=== PATIENT | female | born 1980 | race Two or more races ===

== ENCOUNTER 2018-06-08 09:50 | Inpatient (IN) | payer OTHER ==
[~2018-06-08 09:50] MED LIST: CITRIC ACID/SODIUM CITRATE 30 ML UNIT-DOSE CUP PO ONE; ELECTROLYTE-148 SOLN 1,000 ML IV SCH
[2018-06-08] MEDS ORDERED: ELECTROLYTE-148 SOLN 1,000 ML IV SCH ×2 (10:50→13:30)
[2018-06-08 11:35] VITALS: BMI 32.2
[2018-06-08] MEDS ORDERED: OXYTOCIN 20 UNITS in 0.9% NS 20 UNIT/1,000 ML INFUS.BAG IV ONE ×2 (13:08→15:26)
[2018-06-08] MEDS ORDERED: CITRIC ACID/SODIUM CITRATE 30 ML UNIT-DOSE CUP PO ONE (13:29)
[2018-06-08] MEDS ORDERED: morphine SULFATE/Preservative Free 0.5 MG/ML (1cc Syringe) ONE (13:35)
--- NOTE | 2018-06-08 13:36 | HP ---
Past Medical History - Admission Chief Complaint: Spontaneous rupture of membrane History of Present Illness: 38 yo @ 39 weeks gestation, EDC 06/15/18, with 2 previous C-Sections, presents c/o rupture of membrane at 8am. She was admitted for repeat . History Source: Patient Limitations to Obtaining History: No Limitations - Past Medical History ...: 3 ...Para: 2 ...Term: 2 ...: 0 ...Spon : 0 ...Induced : 0 ...Multiple Gestation: 0 ...LMP: 09/14/17 ... Weeks Gestation by Dates: 38.1 ...EDC by Dates: 06/21/18 ...EDC by Sono: 06/20/18 - Past Surgical History Past Surgical History: Yes: Hx Myomectomy: No Hx Transabdominal Cerclage: No - Smoking History Smoking history: Never smoked Have you smoked in the past 12 months: No - Alcohol/Substance Use Hx Alcohol Use: No History of Substance Use: reports: None - Social History Usual Living Arrangement: Yes: With Significant Other History of Recent Travel: No Home Medications - Allergies Allergies/Adverse Reactions: Allergies Allergy/AdvReac Type Severity Reaction Status Date / Time No Known Allergies Allergy Verified 06/08/18 11:40 - Home Medications Home Medications: Ambulatory Orders Ferrous Sulfate 325 mg PO DAILY 06/01/18 Pnv No.95/Ferrous Fum/Folic AC [ Vitamin Tablet] 1 each PO DAILY Family Disease History - Family Disease History Family History: Unremarkable Review of Systems - Review of Systems Constitutional: reports: No Symptoms Eyes: reports: No Symptoms HENT: reports: No Symptoms Neck: reports: No Symptoms Cardiovascular: reports: No Symptoms Respiratory: reports: No Symptoms Gastrointestinal: reports: No Symptoms Genitourinary: reports: Pain Breasts: reports: No Symptoms Reported Musculoskeletal: reports: No Symptoms Integumentary: reports: No Symptoms Neurological: reports: No Symptoms Endocrine: reports: No Symptoms Hematology/Lymphatic: reports: No Symptoms Psychiatric: reports: No Symptoms Pain Intensity: 5 Physical Exam - Maternity Vital Signs: Vital Signs Temperature 98.1 F 06/08/18 13:00 Pulse Rate 86 06/08/18 13:00 Respiratory Rate 20 06/08/18 13:00 Blood Pressure 91/71 06/08/18 13:00 O2 Sat by Pulse Oximetry (%) Constitutional: Yes: Well Nourished Eyes: Yes: Conjunctiva Clear HENT: Yes: Atraumatic Neck: Yes: Supple Cardiovascular: Yes: Regular Rate and Rhythm Lungs: Clear to auscultation - Abdominal Exam/OB Number of Fetuses: Single Presentation: Vertex Contractions: Yes Regularity: Irregular - Physical Exam ...Motor Strength: WNL Psychiatric: Yes: Alert, Oriented Problem List - Problems (1) Previous section complicating , antepartum condition or complication Code(s): O34.219 - MATERNAL CARE FOR UNSP TYPE SCAR FROM PREVIOUS DEL (2) Rupture of membranes with clear amniotic fluid Code(s): ERK9603 - Assessment/Plan Spontaneous rupture of membrane Previous C-Sections 39 weeks gestation Admit for repeat Consent signed Anesthesia to see patient
[2018-06-08] MEDS ORDERED: OXYTOCIN 10 UNITS/ML VIAL ONE (13:57)
[2018-06-08] MEDS ORDERED: ceFAZolin SODIUM 1 GM VIAL ONE (14:23)
[2018-06-08] MEDS ORDERED: IBUPROFEN 800 MG/8 ML IJ IVPB PRN (14:35)
[2018-06-08] MEDS ORDERED: METHYLERGONOVINE MALEATE 0.2 MG/1 ML AMP IM PRN (14:35)
--- NOTE | 2018-06-08 14:38 | OP ---
Operative Note - Note: Operative Date: 06/08/18 Pre-Operative Diagnosis: Spontaneous rupture of membrane / Previous Operation: Repeat Low Transverse Findings: Pelvic adhesion Surgeon: Norah Brown Contact Assembler: Anuj Sloan Specimens Removed: Placenta Estimated Blood Loss (mls): 600
[2018-06-08] MEDS ORDERED: ONDANSETRON 4 MG/2 ML VIAL IVPUSH PRN (15:04)
[2018-06-08] MEDS ORDERED: IBUPROFEN 800 MG/8 ML IJ IVPB ONE (15:24)
[2018-06-08] MEDS: OXYTOCIN 20 UNITS in 0.9% NS 20 UNIT/1,000 ML INFUS.BAG IV SCH (15:53)
[2018-06-09] MEDS: OXYTOCIN 20 UNITS in 0.9% NS 20 UNIT/1,000 ML INFUS.BAG IV SCH (07:30)
--- NOTE | 2018-06-09 08:21 | PN ---
Progress Note (short form) - Note Progress Note: Post op day#1.S/P C Section under spinal anesthesia with duramorph uneventful.Patient stable and has little pain for which she is on medication.No any anesthesia related problem.Patient DC from the anesthesia care.
[2018-06-09 09:02] LABS: BASO % 0.3 % (0-2.0); EOS % 0.6 % (0-4.5); HEMATOCRIT 36.4 % (32.4-45.2); HEMOGLOBIN 12.2 GM/dL (10.7-15.3); LYMPH % 11.3 % (8-40); MCH 29.6 pg (25.7-33.7); MCHC 33.6 g/dl (32.0-36.0); MEAN PLT VOLUME 12.2 fl (7.5-11.1); MONO % 6.1 % (3.8-10.2); NEUT % 81.7 % (42.8-82.8); PLATELET COUNT 95 K/MM3 (134-434); RBC 4.13 M/mm3 (3.60-5.2); RDW 15.9 % (11.6-15.6); WHITE BLOOD COUNT 8.1 K/mm3 (4.0-10.0)
[2018-06-09] MEDS: oxyCODONE HCL 5 MG TABLET PO PRN (09:24)
[2018-06-09] MEDS: IBUPROFEN 600 MG TABLET (FP) PO PRN ×2 (09:25→16:49)
[2018-06-09] MEDS: SIMETHICONE 80 MG TAB.CHEW (FP) PO PRN ×2 (09:26→16:51)
[2018-06-09] MEDS: PRENATAL VITAMINS W/ FOLIC ACID TABLET (FP) PO SCH (10:00)
--- NOTE | 2018-06-09 10:37 | PN ---
Post Progress Note - Subjective Subjective: 38 yo Para 3 status post repeat , seen and evaluated. Doing well. Post Day: 1 Type of Delivery: Repeat C/S Vital Signs: Vital Signs Temperature 97.9 F 06/09/18 07:55 Pulse Rate 68 06/09/18 07:55 Respiratory Rate 18 06/09/18 08:00 Blood Pressure 98/65 06/09/18 07:55 O2 Sat by Pulse Oximetry (%) 100 06/08/18 15:45 Breast Exam: Yes: Soft Incision: Yes: Dressing dry and intact Abdomen/GI: Yes: Abdomen soft, Tolerating PO Lochia: Yes: Rubra Lochia, amount: Small Extremities: Yes: Calves non-tender Activity: Ambulating - Labs Labs: CBC WBC 8.1 K/mm3 (4.0-10.0) 06/09/18 08:30 RBC 4.13 M/mm3 (3.60-5.2) 06/09/18 08:30 Hgb 12.2 GM/dL (10.7-15.3) 06/09/18 08:30 Hct 36.4 % (32.4-45.2) 06/09/18 08:30 MCV 88.0 fl (80-96) 06/09/18 08:30 MCH 29.6 pg (25.7-33.7) 06/09/18 08:30 MCHC 33.6 g/dl (32.0-36.0) 06/09/18 08:30 RDW 15.9 % (11.6-15.6) H 06/09/18 08:30 Plt Count 95 K/MM3 (134-434) L 06/09/18 08:30 MPV 12.2 fl (7.5-11.1) H 06/09/18 08:30 Absolute Neuts (auto) 6.7 K/mm3 (1.5-8.0) 06/09/18 08:30 Neutrophils % 81.7 % (42.8-82.8) 06/09/18 08:30 Lymphocytes % 11.3 % (8-40) D 06/09/18 08:30 Monocytes % 6.1 % (3.8-10.2) 06/09/18 08:30 Eosinophils % 0.6 % (0-4.5) 06/09/18 08:30 Basophils % 0.3 % (0-2.0) 06/09/18 08:30 Nucleated RBC % 0 % (0-0) 06/09/18 08:30 Problem List - Problems (1) Previous section complicating , antepartum condition or complication Code(s): O34.219 - MATERNAL CARE FOR UNSP TYPE SCAR FROM PREVIOUS DEL (2) Rupture of membranes with clear amniotic fluid Code(s): AXD7200 - (3) Status post repeat low transverse section Code(s): Z98.891 - HISTORY OF UTERINE SCAR FROM PREVIOUS SURGERY Assessment/Plan Status post Stable Continue routine post op care
[2018-06-09] MEDS ORDERED: BISACODYL 10 MG SUPP.RECT RC PRN (14:35)
[2018-06-09] MEDS: ACETAMINOPHEN 325 MG TABLET (FP) PO PRN (16:50)
[2018-06-10] MEDS: SIMETHICONE 80 MG TAB.CHEW (FP) PO PRN ×3 (03:54→16:16)
[2018-06-10] MEDS: ACETAMINOPHEN 325 MG TABLET (FP) PO PRN (03:54)
[2018-06-10] MEDS: IBUPROFEN 600 MG TABLET (FP) PO PRN ×3 (03:57→16:16)
[2018-06-10] MEDS: oxyCODONE HCL 5 MG TABLET PO PRN ×2 (07:29→16:15)
[2018-06-10] MEDS ORDERED: DIPHTH,PERTUSS(ACELL),TET 0.5 ML DISP.SYRIN IM ONE (10:00)
[2018-06-10] MEDS: PRENATAL VITAMINS W/ FOLIC ACID TABLET (FP) PO SCH (11:48)
[2018-06-11] MEDS: oxyCODONE HCL 5 MG TABLET PO PRN (07:09)
[2018-06-11] MEDS: SIMETHICONE 80 MG TAB.CHEW (FP) PO PRN (07:10)
[2018-06-11] MEDS: IBUPROFEN 600 MG TABLET (FP) PO PRN (07:10)
[2018-06-11 08:27] LABS: BASO % 0.6 % (0-2.0); HEMATOCRIT 32.9 % (32.4-45.2); HEMOGLOBIN 10.9 GM/dL (10.7-15.3); LYMPH % 20.1 % (8-40); MCH 29.1 pg (25.7-33.7); MCHC 33.1 g/dl (32.0-36.0); MEAN CELL VOLUME 88.2 fl (80-96); MONO % 8.8 % (3.8-10.2); NEUT % 68.5 % (42.8-82.8); PLATELET COUNT 120 K/MM3 (134-434); RBC 3.74 M/mm3 (3.60-5.2); RDW 16.1 % (11.6-15.6); WHITE BLOOD COUNT 6.7 K/mm3 (4.0-10.0)
[2018-06-11] MEDS: PRENATAL VITAMINS W/ FOLIC ACID TABLET (FP) PO SCH (09:22)
[2018-06-11 09:57] VITALS: BP 113/64; PULSE 65; TEMP 98.2
--- NOTE | 2018-06-16 16:17 | PATH ---
Surgical Pathology Report Patient Name: ALLA WEBBER Med. Rec. 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 Specimen(s) Received PLACENTA Clinical History , previous x2 2011 and 2014 History of GDM with second Final Diagnosis PLACENTA, SECTION: 669 G THIRD TRIMESTER PLACENTA WITH TRIVASCULAR UMBILICAL CORD AND UNREMARKABLE PLACENTAL MEMBRANES. Electronically Signed Alla Fry M.D. Gross Description The specimen is received fresh labeled placenta and is a 669 gram, 20.5 x 16.0 x 3.0 cm. placenta with attached membranes and umbilical cord. The attached membranes are de la cruz, translucent with focal opacities and insert marginally. The umbilical cord measures 39 cm. in length and averages 1 cm. in diameter. The cord inserts eccentrically, 5 cm. to the nearest margin. No true knots or strictures are identified. Cut surface of the umbilical cord reveals 3 vessels. The surface is maddox-blue with minimal fibrin deposition and appropriate caliber vessels. The maternal surface is red-brown with focal defects. Sectioning reveals red-brown, spongy parenchyma. No lesions are identified. Agricultural Engineering Technologist sections are submitted in three cassettes as follows: 1- membrane rolls and umbilical cord; 2-3- full thickness sections of placenta. 06/12/201806/12/2018
== END 2018-06-11 15:45 | disposition home or self-care (01) | DRG 540 ==
LOC: JLDR 09:50 → J3W 16:11
PROVIDERS: ADMIT Obstetrics & Gynecology; ATTEND Obstetrics & Gynecology
PROC: 10D00Z1 Extraction of Products of Conception, Low, Open Approach (ICD-10-PCS; principal; 2018-06-08)
DX: O34.211 Maternal care for low transverse scar from previous cesarean delivery (principal); N73.6 Female pelvic peritoneal adhesions (postinfective); Z3A.39 39 weeks gestation of pregnancy; Z37.0 Single live birth
CPT/HCPCS: 36415; 85025; 88307-TC; 90715